=== PATIENT | male | born 1990 | race African-American/Black ===

== ENCOUNTER 2019-03-26 15:37 | Inpatient (IN) | payer MEDICAID ==
[~2019-03-26] VITALS: Ht 167.6 cm; Wt 66.9 kg
[2019-03-26] MEDS ORDERED: ALBUTEROL (0.083%) 2.5MG/3ML NEB HHN STA (15:52)
[2019-03-26] MEDS ORDERED: IPRATROPIUM BROMIDE (0.02%) 0.5MG/2.5ML NEB HHN STA (15:52)
[2019-03-26] MEDS ORDERED: PREDNISONE 20MG TABLET PO STA (15:52)
[2019-03-26] MEDS ORDERED: MAGNESIUM 2 G PREMIX 50 ML IV STA (17:11)
[2019-03-26] MEDS ORDERED: METHYLPREDNISOLONE SOD SUCC 125 MG/2 ML VIAL IV STA (17:11)
[2019-03-26] MEDS ORDERED: SODIUM CHLORIDE 0.9% 1,000 ML IV ONE (17:11)
[2019-03-26] MEDS ORDERED: OSELTAMIVIR 75MG CAPSULE PO ONE (18:00)
[2019-03-26] MEDS ORDERED: ACETAMINOPHEN 325MG TABLET PO ONE (18:00)
[2019-03-26] MEDS ORDERED: LEVOFLOXACIN 500MG PREMIX 100 ML IV ONE (18:00)
[2019-03-26] MEDS ORDERED: SODIUM CHLORIDE 0.9% 1000ML BAG (SEPSIS BOLUS) IV ONE (18:00)
[2019-03-26 18:11] LABS: BASOPHILS % 0.5 % (0.0-2.0); HEMATOCRIT. 40.1 % (42.0-52.0); HEMOGLOBIN. 13.8 g/dL (14.0-18.0); LYMPHOCYTES % 7.6 % (20.0-50.0); MEAN CORPUSCULAR HEMOGLOBIN 29.9 pg (28.0-32.0); MEAN CORPUSCULAR VOLUME 86.7 fL (80.0-94.0); MONOCYTES % 4.5 % (2.0-8.0); NEUTROPHILS % 87.4 % (40.0-76.0); PLATELET 195 x1000/uL (130-400); RED BLOOD CELL COUNT 4.62 mill/uL (4.7-6.1); RED CELL DISTRIBUTION WIDTH 14.4 % (11.6-14.6)
[2019-03-26 18:17] LABS: CHLORIDE 101 mEq/L (98-107)
[2019-03-26] MEDS ORDERED: POTASSIUM CHLORIDE 20MEQ TABLET SR PO ONE (18:30)
[2019-03-26 20:00] VITALS: BP 150/66
[2019-03-26 20:04] LABS: CLARITY URINE CLEAR (CLEAR); COLOR URINE YELLOW (YELLOW); KETONES URINE 2+ (NEGATIVE); LEUKOCYTE ESTERASE URINE NEGATIVE (NEGATIVE); NITRITE URINE NEGATIVE (NEGATIVE); OCCULT BLOOD URINE NEGATIVE (NEGATIVE); PROTEIN URINE NEGATIVE (NEGATIVE); SPECIFIC GRAVITY URINE 1.009 (1.005-1.030)
[2019-03-26 20:16] LABS: *AMPHETAMINES SCREEN URINE NEGATIVE (NEGATIVE); *BARBITURATES SCREEN URINE NEGATIVE (NEGATIVE); *BENZODIAZEPINES SCREEN URINE NEGATIVE (NEGATIVE); *COCAINE SCREEN URINE NEGATIVE (NEGATIVE)
[2019-03-26 20:17] LABS: CANNABINOID URINE SCREEN PRESUMTIVE POSITIVE (NEGATIVE); METHADONE URINE SCREEN NEGATIVE (NEGATIVE); OPIATES URINE SCREEN NEGATIVE (NEGATIVE); PHENCYCLIDINE URINE SCREEN NEGATIVE (NEGATIVE)
[2019-03-26 20:21] VITALS: BP 102/40
[2019-03-26 21:30] VITALS: BP 102/40
[2019-03-26] MEDS: METHYLPREDNISOLONE SOD SUCC 40 MG/ML VIAL IV SCH (22:06)
[2019-03-26] MEDS ORDERED: ONDANSETRON HCL 4MG/2ML INJ IV PRN (22:30)
[2019-03-26] MEDS ORDERED: ACETAMINOPHEN 325MG TABLET PO PRN (22:30)
[2019-03-27] VITALS: BP 101/49
[2019-03-27] MEDS: IPRATROPIUM/ALBUTEROL 0.5-3(2.5)MG/3ML NEB HHN SCH ×6 (00:48→21:04)
[2019-03-27 04:00] VITALS: BP 127/84
[2019-03-27] MEDS: METHYLPREDNISOLONE SOD SUCC 40 MG/ML VIAL IV SCH ×3 (05:56→21:35)
[2019-03-27 08:00] VITALS: BP 134/59
[2019-03-27 08:03] LABS: HEMATOCRIT. 41.2 % (42.0-52.0); HEMOGLOBIN. 13.9 g/dL (14.0-18.0); MEAN CORPUSCULAR HEMOGLOBIN 29.9 pg (28.0-32.0); MEAN CORPUSCULAR VOLUME 88.3 fL (80.0-94.0); MEAN PLATELET VOLUME 9.1 fl (7.4-10.4); PLATELET 206 x1000/uL (130-400); RED BLOOD CELL COUNT 4.67 mill/uL (4.7-6.1); RED CELL DISTRIBUTION WIDTH 14.6 % (11.6-14.6)
[2019-03-27 08:04] LABS: CHLORIDE 110 mEq/L (98-107)
[2019-03-27] MEDS: ENOXAPARIN 40MG/0.4ML SYR SUBCUT SCH (08:17)
[2019-03-27] MEDS: OSELTAMIVIR 75MG CAPSULE PO SCH ×2 (08:17→21:35)
[2019-03-27 12:00] VITALS: BP 110/57
[2019-03-27 15:10] LABS: PLATELET ESTIMATE NORMAL
[2019-03-27 16:00] VITALS: BP 110/42
[2019-03-27] MEDS: MONTELUKAST SODIUM 10MG TABLET PO SCH (17:01)
[2019-03-27 20:00] VITALS: BP 113/66
[2019-03-28] VITALS: BP 112/58
[2019-03-28] MEDS: IPRATROPIUM/ALBUTEROL 0.5-3(2.5)MG/3ML NEB HHN SCH ×2 (00:52→04:10)
[2019-03-28 04:00] VITALS: BP 124/61
[2019-03-28] MEDS: METHYLPREDNISOLONE SOD SUCC 40 MG/ML VIAL IV SCH ×2 (05:12→17:20)
[2019-03-28] MEDS ORDERED: IPRATROPIUM/ALBUTEROL 0.5-3(2.5)MG/3ML NEB HHN PRN (08:45)
[2019-03-28] MEDS ORDERED: BUDESONIDE 0.5MG/2ML NEB HHN SCH (09:00)
[2019-03-28] MEDS: OSELTAMIVIR 75MG CAPSULE PO SCH (09:54)
[2019-03-28] MEDS: ENOXAPARIN 40MG/0.4ML SYR SUBCUT SCH (09:55)
[2019-03-28 12:00] VITALS: BP 116/65
[2019-03-28] MEDS ORDERED: TAM75 PO (13:33)
[2019-03-28] MEDS ORDERED: P50 MT (13:33)
[2019-03-28] MEDS ORDERED: IPRA3AMP9 HHN (13:34)
[2019-03-28 16:00] VITALS: BP 120/74
[2019-03-28 17:01] VITALS: BP 120/74
[2019-03-28] MEDS: MONTELUKAST SODIUM 10MG TABLET PO SCH (17:20)
== END 2019-03-28 18:13 | disposition home or self-care (01) | DRG 720 ==
LOC: ER 15:37 → EDBEDREQ 17:50 → EDBEDREQTM 17:50 → ENRESERV 19:41 → 7WST 21:39
PROVIDERS: ADMIT Family Medicine; ATTEND Family Medicine
DX: A41.89 Other specified sepsis (principal); J96.00 Acute respiratory failure, unspecified whether with hypoxia or hypercapnia; J45.901 Unspecified asthma with (acute) exacerbation; J10.1 Influenza due to other identified influenza virus with other respiratory manifestations; F12.90 Cannabis use, unspecified, uncomplicated; F17.210 Nicotine dependence, cigarettes, uncomplicated; Z91.010 Allergy to peanuts
CPT/HCPCS: 36415; 71045; 80305; 81003; 83605; 83880; 84484; 87804; 93005; 94640; 96365; 96366; 96368; 99291; J1650; J1956; J2920; J2930; J3475; J7030; J7512; J7611; J7620

== ENCOUNTER 2020-02-12 19:34 | Emergency (ER) | payer MEDICAID, OTHER ==
[~2020-02-12] VITALS: Ht 167.6 cm; Wt 82.0 kg
[~2020-02-12 19:34] MED LIST: IPRA3AMP9 HHN; P50 MT; TAM75 PO
[2020-02-12] MEDS ORDERED: KETOROLAC 30MG/ML VIAL IV STA (20:31)
[2020-02-12] MEDS ORDERED: PIPERACILLIN/TAZ 3.375G PREMIX 50 ML IV ONE (20:45)
[2020-02-12] MEDS ORDERED: DEXAMETHASONE 10 MG/ML VIAL IV ONE (20:45)
[2020-02-12] MEDS ORDERED: VANCOMYCIN 1 G PREMIX 200 ML IV ONE (20:45)
[2020-02-12 21:27] LABS: BASOPHILS % 0.6 % (0.0-2.0); EOSINOPHILS % 0.5 % (0.0-5.0); HEMATOCRIT. 41.3 % (42.0-52.0); LYMPHOCYTES % 10.6 % (20.0-50.0); MEAN CORPUSCULAR HEMOGLOBIN 30.5 pg (28.0-32.0); MEAN CORPUSCULAR VOLUME 89.7 fL (80.0-94.0); MEAN PLATELET VOLUME 9.1 fl (7.4-10.4); MONOCYTES % 11.8 % (2.0-8.0); NEUTROPHILS % 76.5 % (40.0-76.0); PLATELET 226 x1000/uL (130-400); RED CELL DISTRIBUTION WIDTH 14.7 % (11.6-14.6)
[2020-02-12 21:32] LABS: CLARITY URINE CLEAR (CLEAR); COLOR URINE DK YELLOW (YELLOW); KETONES URINE 3+ (NEGATIVE); LEUKOCYTE ESTERASE URINE NEGATIVE (NEGATIVE); NITRITE URINE NEGATIVE (NEGATIVE); OCCULT BLOOD URINE NEGATIVE (NEGATIVE); PROTEIN URINE 1+ (NEGATIVE); SPECIFIC GRAVITY URINE 1.033 (1.005-1.030)
[2020-02-12 21:33] LABS: CHLORIDE 105 mEq/L (98-107)
[2020-02-12 21:34] LABS: PROTHROMBIN TIME 10.9 sec (9.6-11.0)
[2020-02-12 22:08] LABS: MONOTEST NEGATIVE (NEGATIVE)
[2020-02-12] MEDS ORDERED: SODIUM CHLORIDE 0.9% 1000ML BAG (SEPSIS BOLUS) IV ONE (22:30)
[2020-02-13] MEDS ORDERED: IOHEXOL-300 100 ML BOTTLE ONE (00:20)
[2020-02-13 01:18] VITALS: BP 127/65
== END 2020-02-13 01:23 | disposition home or self-care (01) ==
LOC: ER 19:34 → CANBEDREQ 02-13 04:31
DX: J36 Peritonsillar abscess (principal); J45.909 Unspecified asthma, uncomplicated; Z91.018 Allergy to other foods
CPT/HCPCS: 36415; 70491; 80053; 81003; 83605; 85025; 85610; 86308; 87040; 87086; 87430; 96365; 96366; 96367; 96375; 99285; J1100; J1885; J2543; J3370; J7030; Q9967

== ENCOUNTER 2020-12-23 23:06 | Emergency (ER) | payer OTHER, MEDICAID ==
[~2020-12-23] VITALS: Ht 167.6 cm; Wt 75.0 kg
[2020-12-24] MEDS ORDERED: IBUPROFEN 600MG TABLET PO ONE (00:30)
[2020-12-24] MEDS ORDERED: ACETAMINOPHEN 325MG TABLET PO ONE (02:45)
[2020-12-24] MEDS ORDERED: ACET-2708 MT (03:21)
[2020-12-24] MEDS ORDERED: NAPR-1176 MT (03:21)
[2020-12-24 03:30] VITALS: BP 132/64
== END 2020-12-24 03:45 | disposition home or self-care (01) ==
LOC: ER 23:06
DX: S60.121A Contusion of right index finger with damage to nail, initial encounter (principal); J45.909 Unspecified asthma, uncomplicated; Z91.018 Allergy to other foods; W22.8XXA Striking against or struck by other objects, initial encounter; Y93.89 Activity, other specified; Y92.812 Truck as the place of occurrence of the external cause
CPT/HCPCS: 73140; 99283

== ENCOUNTER 2023-11-10 04:18 | Emergency (ER) | payer MEDICAID, OTHER ==
[~2023-11-10] VITALS: Ht 167.6 cm; Wt 73.0 kg
[~2023-11-10 04:18] MED LIST changes: +ACET-2708 MT; +ALBU05 NEB; +ALBU6.7H3 INH; +NAPR-1176 MT; +NEBU-270 MC
[2023-11-10 04:43] LABS: CHLORIDE 109 mEq/L (98-107); POTASSIUM 3.7 mEq/L (3.5-5.1); SODIUM 139 mEq/L (136-145)
[2023-11-10 04:44] LABS: CARBON DIOXIDE 21 mEq/L (21-32)
[2023-11-10 04:45] LABS: CALCIUM 9.3 mg/dL (8.7-10.4)
[2023-11-10 04:49] LABS: CREATININE 1.2 mg/dL (0.6-1.3); GLUCOSE 100 mg/dL (70-105)
[2023-11-10 04:50] LABS: UREA NITROGEN BLOOD 7 mg/dL (9-23)
[2023-11-10 04:51] LABS: TROPONIN I HIGH SENSITIVITY 7 ng/L (3.0-53)
[2023-11-10] MEDS: ALBUTEROL (0.083%) 2.5MG/3ML NEB HHN STA ×2 (04:52→08:32)
[2023-11-10 04:53] VITALS: PULSE 75; RESP 18; O2SAT 97
[2023-11-10] MEDS: IPRATROPIUM BROMIDE (0.02%) 0.5MG/2.5ML NEB HHN STA ×2 (04:53→08:30)
[2023-11-10 05:29] LABS: BASOPHILS % 0.6 % (0.0-2.0); EOSINOPHILS % 2.7 % (0.0-5.0); HEMATOCRIT. 39.5 % (42.0-52.0); HEMOGLOBIN. 13.2 g/dL (14.0-18.0); LYMPHOCYTES % 24.6 % (20.0-50.0); MEAN CORPUSCULAR HEMOGLOBIN 29.6 pg (28.0-32.0); MEAN CORPUSCULAR HGB CONC 33.4 g/dL (31.0-37.0); MEAN CORPUSCULAR VOLUME 88.8 fL (80.0-94.0); MEAN PLATELET VOLUME 8.8 fl (7.4-10.4); MONOCYTES % 12.8 % (2.0-8.0); NEUTROPHILS % 59.3 % (40.0-76.0); PLATELET 281 x1000/uL (130-400); RED BLOOD CELL COUNT 4.45 mill/uL (4.7-6.1); RED CELL DISTRIBUTION WIDTH 15.1 % (11.6-14.6); WHITE BLOOD COUNT 12.6 x1000/uL (4.5-11.0)
[2023-11-10] MEDS: PREDNISONE 20MG TABLET PO STA (07:06)
[2023-11-10 08:30] VITALS: PULSE 77; RESP 20; O2SAT 98
[2023-11-10] MEDS ORDERED: ALBUTEROL (0.083%) 2.5MG/3ML NEB HHN SCH (08:30)
[2023-11-10] MEDS ORDERED: ALBU90AE INH (08:43)
[2023-11-10] MEDS ORDERED: P20 MT (08:43)
[2023-11-10 09:23] VITALS: BP 130/71; PULSE 80; RESP 18; TEMP 98.1
== END 2023-11-10 09:28 | disposition home or self-care (01) ==
LOC: ER 04:18
DX: J45.901 Unspecified asthma with (acute) exacerbation (principal); F17.200 Nicotine dependence, unspecified, uncomplicated; Z91.018 Allergy to other foods; Z79.899 Other long term (current) drug therapy
CPT/HCPCS: 80048; 85025; 84484; 36415; 71045; 94640; 99284; J7512; Z7610 ×3

== ENCOUNTER 2023-11-25 04:49 | Emergency (ER) | payer OTHER ==
[~2023-11-25] VITALS: Ht 167.6 cm; Wt 73.0 kg
[~2023-11-25 04:49] MED LIST changes: +ALBU90AE INH; +P20 MT
[2023-11-25 05:03] VITALS: TEMP 36.72516
[2023-11-25 05:59] LABS: BASOPHILS % 0.9 % (0.0-2.0); EOSINOPHILS % 2.7 % (0.0-5.0); HEMATOCRIT. 43.3 % (42.0-52.0); HEMOGLOBIN. 14.4 g/dL (14.0-18.0); LYMPHOCYTES % 33.6 % (20.0-50.0); MEAN CORPUSCULAR HEMOGLOBIN 30.2 pg (28.0-32.0); MEAN CORPUSCULAR HGB CONC 33.3 g/dL (31.0-37.0); MEAN CORPUSCULAR VOLUME 90.7 fL (80.0-94.0); MEAN PLATELET VOLUME 8.5 fl (7.4-10.4); MONOCYTES % 8.3 % (2.0-8.0); NEUTROPHILS % 54.5 % (40.0-76.0); PLATELET 308 x1000/uL (130-400); RED BLOOD CELL COUNT 4.78 mill/uL (4.7-6.1); RED CELL DISTRIBUTION WIDTH 15.8 % (11.6-14.6); WHITE BLOOD COUNT 12.2 x1000/uL (4.5-11.0)
[2023-11-25] MEDS: MAGNESIUM 2 G PREMIX 50 ML IV ONE (06:14)
[2023-11-25] MEDS: METHYLPREDNISOLONE SOD SUCC 125MG/2ML (ACT-O-VIAL) IV STA (06:14)
[2023-11-25 06:15] VITALS: PULSE 66; RESP 16; O2SAT 100
[2023-11-25] MEDS: ALBUTEROL (0.083%) 2.5MG/3ML NEB HHN STA (06:15)
[2023-11-25] MEDS: IPRATROPIUM BROMIDE (0.02%) 0.5MG/2.5ML NEB HHN STA (06:15)
[2023-11-25 06:17] LABS: CARBON DIOXIDE 26 mEq/L (21-32); CHLORIDE 106 mEq/L (98-107); SODIUM 139 mEq/L (136-145)
[2023-11-25 06:18] LABS: CALCIUM 10.4 mg/dL (8.7-10.4)
[2023-11-25 06:22] LABS: CREATININE 1.3 mg/dL (0.6-1.3)
[2023-11-25 06:23] LABS: GLUCOSE 101 mg/dL (70-105); UREA NITROGEN BLOOD 13 mg/dL (9-23)
[2023-11-25 06:24] LABS: ALANINE AMINOTRANSFERASE 16 IU/L (10-49); ASPARTATE AMINOTRANSFERASE 26 IU/L (<34)
[2023-11-25 06:25] LABS: ALBUMIN 4.9 g/dL (3.2-4.8); BILIRUBIN DIRECT 0.1 mg/dL (<=3.0); BILIRUBIN TOTAL 0.6 mg/dL (0.1-1.0); TROPONIN I HIGH SENSITIVITY 8 ng/L (3.0-53)
[2023-11-25 08:56] LABS: TROPONIN I HIGH SENSITIVITY 7 ng/L (3.0-53)
[2023-11-25] MEDS ORDERED: P20 MT (09:58)
[2023-11-25 10:23] VITALS: BP 104/50; PULSE 56; RESP 13; O2SAT 99
== END 2023-11-25 10:39 | disposition home or self-care (01) ==
LOC: ER 04:49
DX: J45.901 Unspecified asthma with (acute) exacerbation (principal); Z79.899 Other long term (current) drug therapy; Z91.018 Allergy to other foods
CPT/HCPCS: 80076; 80048; 83880; 83690; 85025; 85379; 84484; 36415; 71045; 94640; 93005; 96365; 96375; 99291; J3475; J2919; Z7610 ×4

== ENCOUNTER 2023-12-23 04:53 | Emergency (ER) | payer OTHER ==
[~2023-12-23] VITALS: Ht 167.6 cm; Wt 76.7 kg
[2023-12-23 05:05] VITALS: TEMP 98; O2SAT 99
[2023-12-23] MEDS ORDERED: ACETAMINOPHEN 325MG TABLET PO ONE (05:45)
[2023-12-23] MEDS: ACETAMINOPHEN 325MG TABLET PO NR (06:56)
[2023-12-23 06:57] VITALS: BP 115/41; PULSE 69; RESP 18; O2SAT 100
== END 2023-12-23 07:00 | disposition home or self-care (01) ==
LOC: ER 04:53
DX: S09.8XXA Other specified injuries of head, initial encounter (principal); J45.909 Unspecified asthma, uncomplicated; Z79.899 Other long term (current) drug therapy; Z91.018 Allergy to other foods; X58.XXXA Exposure to other specified factors, initial encounter; Y93.89 Activity, other specified; Y92.89 Other specified places as the place of occurrence of the external cause; Y99.8 Other external cause status
CPT/HCPCS: 99284